=== PATIENT | female | born 1985 | race Hispanic/Latino ===

== ENCOUNTER 2018-11-17 19:41 | Inpatient (IN) | payer MEDICAID ==
[~2018-11-17] VITALS: Ht 154.9 cm; Wt 70.3 kg
[~2018-11-17 19:41] MED LIST: ACET1TAB12 PO; DOCU-116 PO; IBUP-1493 PO
[2018-11-17 20:27] LABS: APPEARANCE,URINE Clear (CLEAR); BILIRUBIN,URINE Negative (NEGATIVE); COLOR,URINE Yellow (YELLOW); GLUCOSE, URINE (UA) TRACE mg/dL (NEGATIVE); KETONES,URINE >=160 mg/dL (NEGATIVE); LEUKOCYTE ESTERASE ,URINE Negative (NEGATIVE); NITRATE,URINE Negative (NEGATIVE); OCCULT BLOOD,URINE Negative (NEGATIVE); PH,URINE 5.5 (5.0-8.0); PROTEIN,URINE POS 1+ mg/dL (NEGATIVE)
[2018-11-17 20:48] LABS: BACTERIA,URINE Few /HPF (None Seen); MUCUS,URINE Few LPF (None Seen); RBC,URINE None Seen /HPF (0-1); WBC,URINE 0-1 /HPF (0-1)
[2018-11-17] MEDS: LACTATED RINGERS 1000ML 1,000 ML IV PRN (21:11)
[2018-11-17 21:13] LABS: HEMATOCRIT 39.9 % (36-48); MEAN CORPUSCULAR HEMOGLOBIN 31.1 pg (27.0-33.0); MEAN CORPUSCULAR HGB CONC 33.9 g/dL (32.0-36.0); MEAN CORPUSCULAR VOLUME 91.8 fL (79-99); PLATELET COUNT (AUTO) 317 K/uL (130-400); RED BLOOD CELL COUNT(AUTO) 4.35 MIL/uL (4.00-5.50); RED CELL DISTRIBUTION WIDTH 13.2 % (11.0-15.5); WHITE BLOOD COUNT (AUTO) 8.1 K/uL (4.8-10.8)
[2018-11-17] MEDS ORDERED: ONDANSETRON HCL 4 MG/2 ML VIAL IVP SCH (21:15)
[2018-11-17 21:20] LABS: POTASSIUM 3.3 mmol/L (3.5-5.1)
[2018-11-17] MEDS ORDERED: ONDANSETRON HCL 4 MG/2 ML VIAL ONE (21:45)
[2018-11-17] MEDS ORDERED: LACTATED RINGERS 1000ML 1,000 ML IV SCH (22:00)
[2018-11-17] MEDS ORDERED: TERBUTALINE SULFATE VIAL 1MG/ML SQ SCH ×2 (22:00)
[2018-11-17] MEDS ORDERED: TERBUTALINE SULFATE VIAL 1MG/ML SQ ONE (22:52)
[2018-11-17] MEDS ORDERED: MAGNESIUM 4GM PREMIX 100ML 100 ML IV SCH (23:30)
[2018-11-17] MEDS ORDERED: CALCIUM GLUCONATE 1 GM/10 ML VIAL IV PRN (23:30)
[2018-11-18] MEDS ORDERED: MAGNESIUM SULFATE 1,000 ML IV ONE ×2 (00:15→18:52)
[2018-11-18] MEDS ORDERED: PHARMACY COMMUNICATION MISC SCH (08:15)
[2018-11-18] MEDS: LACTATED RINGERS 1000ML 1,000 ML IV PRN ×2 (08:25→18:50)
[2018-11-18] MEDS: AMPICILLIN 2GM+NS 100ML 100 ML IV SCH ×3 (08:25→20:33)
[2018-11-18] MEDS: CELESTONE SOLUSPAN 6 MG/ML 5ML VIAL IM SCH (08:26)
[2018-11-18] MEDS ORDERED: ONDANSETRON HCL 4 MG/2 ML VIAL IVP PRN (12:00)
[2018-11-18 19:15] VITALS: BP 109/57
[2018-11-18] MEDS: PROMETHAZINE HCL 25 MG/ML 1ML AMPULE IM SCH (22:00)
[2018-11-18 22:26] LABS: MAGNESIUM 5.9 mg/dL (1.80-2.40)
[2018-11-19] MEDS: AMPICILLIN 2GM+NS 100ML 100 ML IV SCH ×3 (02:21→13:59)
[2018-11-19] MEDS ORDERED: PREN1TAB80 PO (04:19)
[2018-11-19 06:10] LABS: HEPATITIS Bs ANTIGEN SCREEN P Negative (Negative)
[2018-11-19] MEDS: CELESTONE SOLUSPAN 6 MG/ML 5ML VIAL IM SCH (08:20)
[2018-11-19] MEDS: LACTATED RINGERS 1000ML 1,000 ML IV PRN ×2 (12:00→23:57)
[2018-11-19] MEDS ORDERED: MAGNESIUM SULFATE 1,000 ML IV ONE (12:29)
[2018-11-19] MEDS ORDERED: SIMETHICONE 80 MG TAB.CHEW ONE (20:06)
[2018-11-19] MEDS ORDERED: SIMETHICONE 80 MG TAB.CHEW PO SCH (21:00)
[2018-11-19] MEDS: PROMETHAZINE HCL 25 MG/ML 1ML AMPULE IM SCH (22:00)
[2018-11-20] MEDS: AMPICILLIN 2GM+NS 100ML 100 ML IV SCH (05:41)
[2018-11-20] MEDS ORDERED: SIMETHICONE 80 MG TAB.CHEW PO SCH (09:00)
== END 2018-11-20 12:15 | disposition home or self-care (01) | DRG 566 ==
LOC: EDH 19:41 → OBSVTOIN 19:42 → LDH 19:42
PROVIDERS: ADMIT Obstetrics & Gynecology; ATTEND Obstetrics & Gynecology
DX: O44.43 Low lying placenta NOS or without hemorrhage, third trimester (principal); E86.0 Dehydration; Z3A.32 32 weeks gestation of pregnancy; O99.284 Endocrine, nutritional and metabolic diseases complicating childbirth; K52.9 Noninfective gastroenteritis and colitis, unspecified
CPT/HCPCS: 36415; 76805; 80051; 81001; 82947; 83735; 85027; 86592; 86850; 86900; 86901; 87340; 96360; 96361; 96372; A4314; G0378; J0290; J0702; J2405; J3105; J3475; J7120

== ENCOUNTER 2022-10-29 12:45 | Emergency (ER) | payer MEDICAID, OTHER ==
[~2022-10-29] VITALS: Ht 157.5 cm; Wt 68.0 kg
[~2022-10-29 12:45] MED LIST changes: +PREN1TAB80 PO
[2022-10-29 12:46] VITALS: BP 145/83; PULSE 105; RESP 20
[2022-10-29] MEDS ORDERED: LIDOCAINE HCL 1% 20 ML VIAL ONE (13:15)
[2022-10-29 13:57] LABS: BASOPHILS # (AUTO) 0.06 K/uL (0.00-0.20); BASOPHILS % (AUTO) 0.5 % (0.0-5.0); EOSINOPHILS # (AUTO) 0.11 K/uL (0.00-0.70); EOSINOPHILS % (AUTO) 0.9 % (0.0-8.0); HEMATOCRIT 30.5 % (36-48); IMMATURE GRANULOCYTE ABSOLUTE 0.04 K/uL (0-1); LYMPHOCYTES # (AUTO) 1.4 K/uL (1.0-4.8); LYMPHOCYTES % (AUTO) 11.8 % (21.0-51.0); MEAN CORPUSCULAR HEMOGLOBIN 24.8 pg (27.0-33.0); MEAN CORPUSCULAR HGB CONC 31.1 g/dL (32.0-36.0); MEAN CORPUSCULAR VOLUME 79.6 fL (79-99); MONOCYTES # (AUTO) 1.1 K/uL (0.1-1.0); MONOCYTES % (AUTO) 9.5 % (3.0-13.0); NEUTROPHILS # (AUTO) 9.1 K/uL (1.8-7.7); PLATELET COUNT (AUTO) 428 K/uL (130-400); RED BLOOD CELL COUNT(AUTO) 3.83 MIL/uL (4.00-5.50); RED CELL DISTRIBUTION WIDTH 14.9 % (11.0-15.5); WHITE BLOOD COUNT (AUTO) 11.9 K/uL (4.8-10.8)
[2022-10-29] MEDS ORDERED: KETOROLAC 15MG/ML VIAL (15MG/ML) IV ONE (14:00)
[2022-10-29] MEDS ORDERED: CLINDAMYCIN IVPB 600MG/50ML 50 ML IV SCH (14:00)
[2022-10-29] MEDS ORDERED: CEFTRIAXONE 1G VIAL IVPB ONE (14:00)
[2022-10-29 14:05] LABS: CREATININE 0.6 mg/dL (0.5-1.5); POTASSIUM 3.7 mmol/L (3.5-5.1)
[2022-10-29 14:09] LABS: ALBUMIN 3.6 g/dL (3.5-5.0); BILIRUBIN,TOTAL 0.2 mg/dL (0.2-1.0); TOTAL PROTEIN, SERUM 8.4 g/dL (6.0-8.3)
[2022-10-29] MEDS ORDERED: CLIN-141 PO (14:49)
[2022-10-29] MEDS ORDERED: CLINDAMYCIN 150 MG CAP PO ONE (15:00)
== END 2022-10-29 15:10 | disposition home or self-care (01) ==
LOC: EDH 12:45
DX: L02.31 Cutaneous abscess of buttock (principal); L03.317 Cellulitis of buttock; Z79.899 Other long term (current) drug therapy; Z98.890 Other specified postprocedural states
CPT/HCPCS: 99284; 96374; 96375; 80053; 85025; 87070; 87076; 36415; J0696; J1885